=== PATIENT | male | born 1945 | race Caucasian/White ===

== ENCOUNTER 2016-12-04 05:35 | Day surgery (SDC) | payer MEDICARE, OTHER ==
[~2016-12-04] VITALS: Ht 177.8 cm; Wt 86.0 kg
[~2016-12-04 05:35] MED LIST: ALBUTEROL INH INH; ALFU10TA PO; ALFUZOSIN PO
[2016-12-04] MEDS ORDERED: LACTATED RINGERS 1,000 ML IV SCH (06:19)
[2016-12-04 06:21] VITALS: BP 130/76
[2016-12-04] MEDS ORDERED: LIDOCAINE 1%, 2ML SQ PRN (06:30)
[2016-12-04] MEDS ORDERED: MIDAZOLAM 1 MG/ML, 2ML ONE (07:07)
[2016-12-04] MEDS ORDERED: FENTANYL PF 100 MCG/2ML ONE ×3 (07:07)
[2016-12-04] MEDS ORDERED: NEOSTIGMINE 1 MG/ML, 10ML ONE (07:46)
[2016-12-04] MEDS ORDERED: ONDANSETRON 2MG/ML, 2ML ONE (07:46)
[2016-12-04] MEDS ORDERED: ROCURONIUM 10 MG/ML ONE (07:46)
[2016-12-04] MEDS ORDERED: GLYCOPYRROLATE 0.2MG/1ML ONE (07:46)
[2016-12-04] MEDS ORDERED: SUCCINYLCHOLINE 20 MG/ML, 10ML ONE (07:46)
[2016-12-04] MEDS ORDERED: PROPOFOL 10 MG/ML, 20ML ONE (07:46)
[2016-12-04] MEDS ORDERED: ONDANSETRON 2MG/ML, 2ML IVPush PRN (08:00)
[2016-12-04] MEDS ORDERED: METOCLOPRAMIDE 5 MG/ML, 2ML IV PRN (08:00)
[2016-12-04] MEDS ORDERED: LABETALOL 5MG/ML, 20ML IV PRN (08:00)
[2016-12-04] MEDS ORDERED: ACETAMINOPHEN 325 MG TABLET PO PRN (08:00)
[2016-12-04] MEDS ORDERED: OXYcodone 5 MG/5 ML ORAL.SOL UDC PO PRN (08:00)
[2016-12-04] MEDS ORDERED: HYDROmorphone 1 MG/ML, 1ML IV PRN (08:00)
[2016-12-04] MEDS ORDERED: FENTANYL PF 100 MCG/2ML IV PRN (08:00)
[2016-12-04] MEDS ORDERED: hydrALAzine 20 MG/ML, 1ML IV PRN (08:00)
[2016-12-04] MEDS ORDERED: FLUORESCEIN SODIUM 500 MG/5 ML ONE ×2 (08:12→08:15)
[2016-12-04] MEDS ORDERED: FUROSEMIDE 20 MG/2 ML ONE (08:31)
[2016-12-04] MEDS ORDERED: HYDROcodone/APAP 5/325 TABLET ONE (11:39)
[2016-12-04] MEDS: HYDROcodone/APAP 5/325 TABLET PO PRN ×2 (11:43→12:26)
== END 2016-12-04 15:45 ==
LOC: OUT 05:35
PROVIDERS: ATTEND Urology
DX: N40.0 Benign prostatic hyperplasia without lower urinary tract symptoms (principal); I25.2 Old myocardial infarction; E11.9 Type 2 diabetes mellitus without complications; J45.909 Unspecified asthma, uncomplicated; Z86.73 Personal history of transient ischemic attack (TIA), and cerebral infarction without residual deficits; Z53.9 Procedure and treatment not carried out, unspecified reason
CPT/HCPCS: 52630; 76998; J0330; J1940; J2250; J2405; J2704; J2710; J3010; J7120; J3490

== ENCOUNTER 2019-06-03 10:11 | Observation (INO) | payer BC, MEDICARE ==
[~2019-06-03] VITALS: Ht 175.3 cm; Wt 80.2 kg
[~2019-06-03 10:11] MED LIST changes: +CEFAZOLIN 1,000 MG ONE; +FENTANYL PF 100 MCG/2ML ONE; +LIDOCAINE-MPF 2% ,5ML ONE; +MIDAZOLAM 1 MG/ML, 2ML ONE; +ONDANSETRON 2MG/ML, 2ML ONE; +PROPOFOL 10 MG/ML, 20ML ONE; +ROCURONIUM 10MG/ML,5ML ONE; +SUPER BETA PROSTATE PO
[2019-06-03] MEDS ORDERED: EXCEDRIN PO (10:38)
[2019-06-03] MEDS ORDERED: EPINEPHRINE 1 MG/ML, 1ML ONE (10:41)
[2019-06-03] MEDS ORDERED: BUPIVACAINE/PF 0.25% ONE (10:41)
[2019-06-03] MEDS ORDERED: OPIUM/BELLADONNA SUPP.RECT 16.2-60 MG ONE (10:41)
[2019-06-03 10:43] VITALS: BP 124/73
[2019-06-03] MEDS: LACTATED RINGERS 1,000 ML IV SCH ×2 (10:58→20:56)
[2019-06-03] MEDS ORDERED: LIDOCAINE-MPF 1%, 2ML INFIL ONE (11:00)
[2019-06-03] MEDS ORDERED: SUGAMMADEX 200 MG/2 ML IVPush ONE (12:14)
[2019-06-03] MEDS ORDERED: ONDANSETRON 2MG/ML, 2ML IV PRN ×2 (13:00→17:00)
[2019-06-03] MEDS ORDERED: hydrALAzine 20 MG/ML, 1ML IV PRN (13:00)
[2019-06-03] MEDS ORDERED: LABETALOL 5MG/ML, 20ML IV PRN (13:00)
[2019-06-03] MEDS ORDERED: ACETAMINOPHEN 325 MG TABLET PO PRN (13:00)
[2019-06-03] MEDS ORDERED: KETOROLAC 30 MG/1 ML IV PRN (13:00)
[2019-06-03] MEDS ORDERED: OXYcodone 5 MG/5 ML ORAL.SOL UDC PO PRN ×2 (13:00→17:00)
[2019-06-03] MEDS ORDERED: LORazepam 2 MG/ML, 1ML IVPush PRN (13:00)
[2019-06-03] MEDS ORDERED: ROCURONIUM 10MG/ML,5ML ONE ×2 (13:28→15:53)
[2019-06-03] MEDS ORDERED: FENTANYL PF 100 MCG/2ML ONE ×3 (13:30→16:43)
[2019-06-03] MEDS ORDERED: NEOSTIGMINE 1 MG/ML, 10ML ONE (14:44)
[2019-06-03] MEDS ORDERED: GLYCOPYRROLATE 0.2MG/1ML, 5ML ONE (14:44)
[2019-06-03] MEDS ORDERED: OXYcodone 5 MG/5 ML ORAL.SOL UDC ONE (16:43)
[2019-06-03] MEDS: FENTANYL PF 100 MCG/2ML IV PRN ×2 (16:45→16:53)
[2019-06-03] MEDS ORDERED: HYDROmorphone 1 MG/ML, 1ML INJ ONE (16:59)
[2019-06-03] MEDS ORDERED: HYDROmorphone 1 MG/ML, 1ML INJ IV PRN (17:00)
[2019-06-03] MEDS: HYDROmorphone 2 MG/ML, 1ML IVPush PRN ×2 (17:05→17:16)
[2019-06-03 17:21] LABS: ALBUMIN 3.3 g/dL (3.4-5.0); ANION GAP 6 mmol/L (5-15); CALCIUM 8.9 mg/dL (8.5-10.1); CHLORIDE 110 mmol/L (98-107); CREATININE 1.19 mg/dL (0.7-1.3)
[2019-06-03] MEDS ORDERED: ALBUTEROL SULFATE 2.5 MG/3 ML NPPB PRN (18:30)
[2019-06-03 19:53] VITALS: BP 129/77
[2019-06-03] MEDS: SODIUM CHLORIDE 0.9% 1,000 ML IV SCH ×2 (20:57→23:31)
[2019-06-03] MEDS: CEFAZOLIN PMX 1GM/50ML 50 ML IVPB SCH (20:58)
[2019-06-03] MEDS: DOCUSATE 100 MG CAPSULE PO SCH (20:59)
[2019-06-03] MEDS: ACETAMINOPHEN 325 MG TABLET PO SCH (20:59)
[2019-06-03] MEDS: HEPARIN 5,000 UNITS/ML, 1ML SQ SCH (21:26)
[2019-06-04 00:09] VITALS: BP 111/70
[2019-06-04 03:17] VITALS: BP 106/64
[2019-06-04] MEDS: ACETAMINOPHEN 325 MG TABLET PO SCH ×3 (03:38→14:29)
[2019-06-04 05:16] LABS: ANION GAP 5 mmol/L (5-15); CALCIUM 7.5 mg/dL (8.5-10.1); CHLORIDE 107 mmol/L (98-107)
[2019-06-04 05:17] LABS: CREATININE 1.15 mg/dL (0.7-1.3)
[2019-06-04] MEDS: CEFAZOLIN PMX 1GM/50ML 50 ML IVPB SCH (05:30)
[2019-06-04] MEDS: HEPARIN 5,000 UNITS/ML, 1ML SQ SCH (05:30)
[2019-06-04 06:49] VITALS: BP 102/58
[2019-06-04] MEDS ORDERED: POLYETHYLENE GLYCOL 17 GM PACKET PO SCH (09:00)
[2019-06-04] MEDS: DOCUSATE 100 MG CAPSULE PO SCH (09:09)
[2019-06-04] MEDS: SODIUM CHLORIDE 0.9% 1,000 ML IV SCH (10:30)
[2019-06-04 13:19] VITALS: BP 107/62
== END 2019-06-04 15:00 | disposition home or self-care (01) ==
LOC: OUT 10:11 → 4NE 17:42 → OUT 18:00 → DCLOUNGE 06-04 14:50
PROVIDERS: ADMIT Student in an Organized Health Care Education/Training Program; ATTEND Student in an Organized Health Care Education/Training Program
DX: N40.1 Benign prostatic hyperplasia with lower urinary tract symptoms (principal); N13.8 Other obstructive and reflux uropathy; Z85.46 Personal history of malignant neoplasm of prostate
CPT/HCPCS: 36415; 55899; 80048; 82040; 85014; 85018; 86850; 86900; 88309; 93005; 96365; 96366; 96372; C1729; C1760; G0378; J0171; J0690; J1170; J1644; J2250; J2405; J2704; J2710; J3010; J3490; J7030; J7120; S2900

== ENCOUNTER 2019-06-12 14:41 | Outpatient (CLI) | payer BC, MEDICARE ==
[~2019-06-12 14:41] MED LIST changes: -CEFAZOLIN 1,000 MG ONE; +EXCEDRIN PO; -FENTANYL PF 100 MCG/2ML ONE; -LIDOCAINE-MPF 2% ,5ML ONE; -MIDAZOLAM 1 MG/ML, 2ML ONE; -ONDANSETRON 2MG/ML, 2ML ONE; -PROPOFOL 10 MG/ML, 20ML ONE; -ROCURONIUM 10MG/ML,5ML ONE
[2019-06-12] MEDS ORDERED: CYSTO CONRAY II 250 ML VIAL UR ONE (16:21)
== END 2019-06-12 23:59 | disposition home or self-care (01) ==
LOC: RAD 14:41
PROVIDERS: ATTEND Student in an Organized Health Care Education/Training Program
DX: N40.1 Benign prostatic hyperplasia with lower urinary tract symptoms (principal); R39.0 Extravasation of urine
CPT/HCPCS: 74430; Q9958